=== PATIENT | female | born 1985 | race Caucasian/White ===

== ENCOUNTER 2024-08-06 14:05 | Emergency (ER) | payer OTHER ==
[~2024-08-06] VITALS: Ht 162.6 cm; Wt 100.0 kg
[2024-08-06] MEDS ORDERED: AZIT250T83 PO (15:20)
[2024-08-06] MEDS ORDERED: PRED50TA PO (15:20)
[2024-08-06] MEDS: dexamethasone sod phosphate 10mg/ml inj IM STA (15:24)
[2024-08-06 15:31] VITALS: BP 183/90; PULSE 96; RESP 16; TEMP 98; O2SAT 96
== END 2024-08-06 15:32 | disposition home or self-care (01) ==
LOC: ER 14:05
DX: J22 Unspecified acute lower respiratory infection (principal); Z20.822 Contact with and (suspected) exposure to COVID-19; F17.210 Nicotine dependence, cigarettes, uncomplicated; Z88.0 Allergy status to penicillin; Z88.1 Allergy status to other antibiotic agents
CPT/HCPCS: 36415; 71045; 87811; 96372; 99284; J1100